=== PATIENT | female | born 2000 | race Two or more races ===

== ENCOUNTER 2023-04-25 08:29 | Outpatient (REF) | payer OTHER, SELFPAY ==
--- NOTE | ~2023-04-25 | US_ITS ---
EXAMINATION: US PELVIS CLINICAL INFORMATION: Irregular menses, question PCOS. COMPARISON: None available. TECHNIQUE: Ultrasound of the pelvis is performed using both transabdominal and transvaginal transducers along with Doppler. Transvaginal imaging is performed due to inadequate visualization transabdominally. FINDINGS: Uterus: The uterus is anteverted and measures 5.8 x 3.2 x 4.0 cm. The double wall endometrial thickness is 1.1 mm. The uterus appears normal. Adnexa: Both ovaries are visualized. There is normal color flow to the adnexa. There is no ovarian torsion. There is no pelvic ascites or fluid collection. The right ovary measures 10.6 mL. The left ovary measures 5.2 mL. Multiple small follicles are seen in both ovaries. The antral follicle count appears to be less than 12 bilaterally. US/US pelvic and transvaginal IMPRESSION: Mildly enlarged right ovary. Otherwise normal examination.
== END 2023-04-25 08:30 | disposition home or self-care (01) ==
LOC: HO.UMASIMG 08:29
PROVIDERS: Visit Provider Family Medicine
DX: N92.6 Irregular menstruation, unspecified (principal)
CPT/HCPCS: 76830; 76856

== ENCOUNTER 2023-08-03 08:34 | Outpatient (REF) | payer OTHER, SELFPAY ==
--- NOTE | ~2023-08-03 | US_ITS ---
EXAMINATION: US PELVIS CLINICAL INFORMATION: Follow-up mildly enlarged right ovary, last menstrual period July 21, 2023. COMPARISON: None available. TECHNIQUE: Ultrasound of the pelvis is performed using both transabdominal and transvaginal transducers along with Doppler. Transvaginal imaging is performed due to inadequate visualization transabdominally. FINDINGS: The uterus measures 7.9 x 3.1 x 3.9 cm and is anteverted. No discrete fibroids are appreciated. Endometrial thickness is 5 mm. No significant free fluid. Small amount of fluid within the endocervical canal. Left ovary measures 3.0 x 1.5 x 1.8 cm, volume 4.4 mL and is unremarkable. Previous left ovarian volume 5.2 mL on 04/25/2023. Right ovary measures 3.3 x 2.7 x 1.9 cm, volume 8.9 mL. Previous right ovarian volume is 10.6 mL. Right ovarian 1.6 x 1.4 x 1.2 cm cyst appears simple, likely physiologic. There is no specific indication for additional imaging at this time. US/US pelvic and transvaginal IMPRESSION: 1. Right ovarian volume is 8.9 mL, previously 10.6 mL. 2. Left ovarian volume 4.4 mL, previously 5.2 mL.
== END 2023-08-03 08:35 | disposition home or self-care (01) ==
LOC: HO.UMASIMG 08:34
PROVIDERS: PCP Family Medicine; Visit Provider Family Medicine
DX: D27.0 Benign neoplasm of right ovary (principal)
CPT/HCPCS: 76830; 76856